=== PATIENT | female | born 1995 ===

== ENCOUNTER 2024-03-10 07:26 | Inpatient (IN) | payer OTHER ==
[2024-03-10] VITALS (8 sets, daily range): BP systolic 102; BP diastolic 71; PULSE 102–139; RESP 18–39; TEMP 102.4; O2SAT 95–100
[~2024-03-10] VITALS: Ht 160 cm; Wt 109.8 kg
[2024-03-10] MEDS: ROCURONIUM BROMIDE 10 MG/ML 5 ML VIAL IVP ONE (07:30)
[2024-03-10] MEDS ORDERED: SODIUM CHLORIDE 0.9% 100 ML ONE (07:45)
[2024-03-10] MEDS ORDERED: IOHEXOL 350 MG/ML 100 ML VIAL ONE (07:45)
[2024-03-10 08:23] LABS: HEMATOCRIT 52.6 % (36-46); HEMOGLOBIN 17.2 g/dL (12.0-16.0); MEAN CORPUSCULAR HGB CONC 32.7 G/dL (31.0-37.0); MEAN CORPUSCULAR VOLUME 92 fL (80-100); PLATELET COUNT (AUTO) 283 K/uL (150-450); RED BLOOD CELL COUNT(AUTO) 5.74 MIL/uL (4.00-5.20); RED CELL DISTRIBUTION WIDTH 13.8 % (11.5-14.5)
[2024-03-10 08:29] LABS: INR 1.4 (0.9-1.1); PROTHROMBIN TIME 14.6 SEC (9.4-11.6); WHITE BLOOD COUNT (AUTO) 37.4 K/uL (4.5-11.0)
[2024-03-10 08:30] LABS: CALCIUM, TOTAL 7.7 mg/dL (8.8-10.5); CREATININE 2.68 mg/dL (0.60-1.30); POTASSIUM 4.8 mmol/L (3.5-5.1); SALICYLATE 1.5 mg/dL (2.8-20.0)
[2024-03-10] MEDS ORDERED: NOREPINEPHRINE 8 MG/0.9 % NACL 250 ML IV ONE (08:41)
[2024-03-10 08:45] LABS: ALBUMIN 3.7 g/dL (3.4-5.0); BAND NEUTROPHILS % (MANUAL) 5 % (0-5); BILIRUBIN,TOTAL 0.3 mg/dL (0.1-1.0); LYMPHOCYTES % (MANUAL) 7 % (22-44); MONOCYTES % (MANUAL) 3 % (2-9); RBC MORPHOLOGY COMMENT NORMAL RBC MORPH; SEGMENTED NEUTROPHILS % 85 % (40-70); TOTAL CELLS COUNTED 100; TOTAL PROTEIN, SERUM 7.4 g/dL (6.4-8.2)
[2024-03-10] MEDS: LevETIRAcetam 1,000 MG in DEXTROSE 5%-WATER 100 ML IV ONE (08:47)
[2024-03-10] MEDS: PIPERACILLIN/TAZO 3.375 GM/D5W 50 ML IV ONE (08:48)
[2024-03-10 08:49] LABS: LACTIC ACID 6.7 mmol/L (0.4-2.0)
[2024-03-10 08:50] LABS: TROPONIN I-HIGH SENSITIVITY 2839 ng/L (<51)
[2024-03-10] MEDS: SODIUM CHLORIDE 0.9% 2,700 ML IV ONE (08:51)
[2024-03-10 08:56] LABS: ACETAMINOPHEN < 2 mcg/mL (10-30)
[2024-03-10 09:11] LABS: ABG BASE EXCESS -13.9 mmol/L (-2.0-3.0); ABG CARBOXYHEMOGLOBIN 0.5 % (0.5-1.5); ABG METHEMOGLOBIN 0.4 % (0.0-1.5); ABG OXYGEN CONTENT 20.1 mL/dL (15.0-23.0); ABG OXYGEN SATURATION 98.7 % (94.0-98.0); ABG OXYHEMOGLOBIN 97.8 % (94.0-98.0); ABG PCO2 48 mmHg (32.0-45.0); ABG TOTAL HEMOGLOBIN 14.4 G/dL (12.0-16.0); SOURCE, BLOOD GAS ARTERIAL; TEMPERATURE, FAHRENHEIT, BG 98.3 FAHREN (96.0-98.6)
[2024-03-10 09:11] LABS: APPEARANCE,URINE HAZY (CLEAR); BILIRUBIN,URINE NEGATIVE (NEGATIVE); COLOR,URINE DARK BROWN (YELLOW); GLUCOSE, URINE (UA) 70-100 mg/dL (NEGATIVE); KETONES,URINE NEGATIVE (NEGATIVE); LEUKOCYTE ESTERASE ,URINE TRACE (NEGATIVE); NITRATE,URINE NEGATIVE (NEGATIVE); OCCULT BLOOD,URINE LARGE (NEGATIVE); PH,URINE 6.5 (5.0-8.0); PH,URINE DRUG SCREEN 6.5 (5.0-8.0); PROTEIN,URINE 300-600,SEE CONFIRM mg/dL (NEGATIVE); UROBILINOGEN,URINE <=1.0 mg/dL (<=1.0)
[2024-03-10 09:12] LABS: ABG A-A DIFF O2 131.6 mmHg (10-20.0); ABG PH 7.124 (7.350-7.450); ALLEN TEST, BLOOD GAS Positive; O2 DEVICE,BLOOD GAS VENTILATOR (ROOM AIR); PO2, ARTERIAL BG 171.3 mmHg (83.0-108.0); SITE, BLOOD GAS RT RADIAL; VT, ABG 450 ml
[2024-03-10 09:13] LABS: PEEP,BG 5 cm H2O
[2024-03-10 09:24] LABS: SULFOSALICYLIC ACID,URINE 3+ (Negative)
[2024-03-10 09:26] LABS: ALCOHOL, URINE DRUG SCREEN NEGATIVE (NEGATIVE); AMPHET/METH SCREEN,URINE POSITIVE (NEGATIVE); BARBITURATE SCREEN, URINE NEGATIVE (NEGATIVE); BENZODIAZEPINES SCREEN,URINE NEGATIVE (NEGATIVE); CANNABINOID SCREEN,URINE POSITIVE (NEGATIVE); COCAINE SCREEN,URINE NEGATIVE (NEGATIVE); METHADONE SCREEN, URINE NEGATIVE (NEGATIVE); OPIATE SCREEN,URINE NEGATIVE (NEGATIVE); PHENCYCLIDINE SCREEN,URINE NEGATIVE (NEGATIVE)
[2024-03-10 09:33] LABS: BACTERIA,URINE Many /HPF (None Seen); FINE GRANULAR CASTS,URINE 0-2 /LPF (None Seen); HYALINE CASTS, URINE 0-2 /LPF (None Seen); SQUAMOUS EPITHELIAL CELL,UR Few /LPF (None Seen)
[2024-03-10] MEDS: VANCOMYCIN HCL 1.5 GM in DEXTROSE 5%-WATER 250 ML IV ONE (09:55)
[2024-03-10] MEDS: SODIUM BICARBONATE [ADULT] 8.4% 50 MEQ/50 ML SYRINGE IVP ONE (10:09)
[2024-03-10] MEDS: ETOMIDATE 2 MG/ML 10 ML VIAL IVP ONE (10:25)
[2024-03-10] MEDS: SODIUM BICARBONATE 150 MEQ in SODIUM CHLORIDE 0.9% 1,000 ML IV ONE (10:31)
[2024-03-10] MEDS: NOREPINEPHRINE 8 MG/0.9 % NACL 250 ML IV PRN (10:59)
[2024-03-10] MEDS: KETAMINE HCL 500 MG in DEXTROSE 5%-WATER 490 ML IV PRN (11:20)
[2024-03-10] MEDS: ALBUTEROL SULFATE 2.5 MG/0.5 ML NEB SOLUTION NEB ONE (11:43)
[2024-03-10] MEDS: IPRATROPIUM BROMIDE 0.5 MG/2.5 ML NEB SOLUTION NEB ONE (11:43)
[2024-03-10 12:29] LABS: TROPONIN I-HIGH SENSITIVITY 5336 ng/L (<51)
[2024-03-10] MEDS ORDERED: HEPARIN SODIUM,PORCINE 5,000 UNITS/ML VIAL IVP PRN (13:15)
[2024-03-10] MEDS: NALOXONE HCL 10 MG in DEXTROSE 5%-WATER 240 ML IV PRN (13:16)
[2024-03-10 13:35] LABS: BASOPHILS % (AUTO) 0.2 % (0.0-2.0); EOSINOPHILS % (AUTO) 0 % (1.0-6.0); HEMATOCRIT 48.7 % (36-46); HEMOGLOBIN 16.1 g/dL (12.0-16.0); LYMPHOCYTES # (AUTO) 1.5 K/uL (1.0-4.8); MEAN CORPUSCULAR HEMOGLOBIN 29.5 pg (26.0-34.0); MEAN CORPUSCULAR HGB CONC 33.1 G/dL (31.0-37.0); MEAN CORPUSCULAR VOLUME 89 fL (80-100); MONOCYTES # (AUTO) 1.4 K/uL (0.1-1.0); MONOCYTES % (AUTO) 4.7 % (2.0-9.0); NEUTROPHILS # (AUTO) 26.7 K/uL (1.8-7.7); PLATELET COUNT (AUTO) 219 K/uL (150-450); RED BLOOD CELL COUNT(AUTO) 5.46 MIL/uL (4.00-5.20); RED CELL DISTRIBUTION WIDTH 13.5 % (11.5-14.5); WHITE BLOOD COUNT (AUTO) 29.6 K/uL (4.5-11.0)
[2024-03-10 13:38] LABS: NEUTROPHILS % (AUTO) 90.1 % (40.0-70.0)
[2024-03-10 13:39] LABS: RBC MORPHOLOGY COMMENT NORMAL RBC MORPH
[2024-03-10 13:46] LABS: INR 1.4 (0.9-1.1); PROTHROMBIN TIME 14.9 SEC (9.4-11.6)
[2024-03-10] MEDS: HEPARIN SODIUM,PORCINE 5,000 UNITS/ML VIAL IVP ONE (13:49)
[2024-03-10] MEDS: SODIUM CHLORIDE 0.9% 1,000 ML IV ONE ×2 (13:51→14:26)
[2024-03-10] MEDS: HEPARIN SODIUM 25000 UNITS/D5W 250 ML IV PRN (13:59)
[2024-03-10 14:06] LABS: GLUCOMETER DEV NAME(LOC) ERT.6; GLUCOSE,POINT OF CARE 129 MG/DL (70-110)
[2024-03-10] MEDS ORDERED: ZOLPIDEM TARTRATE 5 MG TABLET PO PRN (14:15)
[2024-03-10] MEDS ORDERED: HYDROCODONE/ACETAMINOPHEN 5-325 MG TABLET PO PRN (14:15)
[2024-03-10] MEDS ORDERED: MORPHINE SULFATE 2 MG/ML SYRINGE IVP PRN (14:15)
[2024-03-10] MEDS ORDERED: ONDANSETRON HCL 4 MG/2 ML VIAL IVP PRN (14:15)
[2024-03-10] MEDS ORDERED: BISACODYL 10 MG RECTAL RECTAL SUPPOSITORY PR PRN (14:15)
[2024-03-10] MEDS ORDERED: MAGNESIUM HYDROXIDE SUSPENSION 30 ML UDCUP PO PRN (14:15)
[2024-03-10 14:35] LABS: TROPONIN I-HIGH SENSITIVITY 6469 ng/L (<51)
[2024-03-10] MEDS: PIPERACILLIN SODIUM/TAZOBACTAM 2.25 GM in DEXTROSE 5%-WATER 50 ML IV SCH (15:17)
[2024-03-10] MEDS: ACETAMINOPHEN 325 MG TABLET PO PRN (15:17)
[2024-03-10 15:33] LABS: ABG BASE EXCESS -4.7 mmol/L (-2.0-3.0); ABG CARBOXYHEMOGLOBIN 0.2 % (0.5-1.5); ABG HCO3 21.7 mmol/L (21.0-28.0); ABG METHEMOGLOBIN 1.1 % (0.0-1.5); ABG OXYGEN CONTENT 26.9 mL/dL (15.0-23.0); ABG OXYGEN SATURATION 98.6 % (94.0-98.0); ABG OXYHEMOGLOBIN 97.3 % (94.0-98.0); ABG PCO2 36 mmHg (32.0-45.0); ABG PH 7.375 (7.350-7.450); SOURCE, BLOOD GAS ARTERIAL; TEMPERATURE, FAHRENHEIT, BG 100.9 FAHREN (96.0-98.6)
[2024-03-10 15:34] LABS: ABG A-A DIFF O2 70.6 mmHg (10-20.0); ABG TOTAL HEMOGLOBIN 19.6 G/dL (12.0-16.0); ALLEN TEST, BLOOD GAS Positive; O2 DEVICE,BLOOD GAS VENTILATOR (ROOM AIR); PEEP,BG 5 cm H2O; SITE, BLOOD GAS RT RADIAL; VT, ABG 450 ml
[2024-03-10 15:34] LABS: CREATININE 2.35 mg/dL (0.60-1.30); POTASSIUM 4.5 mmol/L (3.5-5.1)
[2024-03-10 15:46] LABS: CALCIUM, TOTAL 5.8 mg/dL (8.8-10.5)
[2024-03-10 15:50] LABS: ALBUMIN 2.4 g/dL (3.4-5.0); BILIRUBIN,TOTAL 0.5 mg/dL (0.1-1.0); TOTAL PROTEIN, SERUM 5.3 g/dL (6.4-8.2)
[2024-03-10] MEDS ORDERED: HEPARIN SODIUM,PORCINE 5,000 UNITS/ML VIAL SQ SCH (16:00)
[2024-03-10] MEDS: ACETAMINOPHEN 500 MG/ISO-OSM 50 ML IV ONE (16:46)
[2024-03-10] MEDS: CALCIUM GLUCONATE 100 MG/ML 10 ML IVP ONE (17:01)
[2024-03-10] MEDS: DOXYCYCLINE HYCLATE 100 MG in DEXTROSE 5%-WATER 100 ML IV SCH (19:33)
[2024-03-10] MEDS: DOCUSATE SODIUM 100 MG CAPSULE PO SCH (20:35)
[2024-03-10 21:05] LABS: TROPONIN I-HIGH SENSITIVITY 7798 ng/L (<51)
[2024-03-10 22:05] LABS: COVID AG,FIA SOURCE NASAL SWAB
[2024-03-10 22:23] LABS: SARS-COV2 (COVID) ANTIGEN,FIA Negative (Negative)
[2024-03-11] VITALS (22 sets, daily range): BP systolic 83–133; BP diastolic 34–82; PULSE 85–141; RESP 20–43; TEMP 96.5–103.2; O2SAT 0–100
[2024-03-11] MEDS: PHENYLEPHRINE 200 MG/D5%-WATER 250 ML IV PRN (00:17)
[2024-03-11] MEDS: PROPOFOL 1000 MG/ISO-OSM 100 ML IV PRN (00:19)
[2024-03-11] MEDS: NOREPINEPHRINE 8 MG/0.9 % NACL 250 ML IV PRN (03:35)
[2024-03-11] MEDS ORDERED: SODIUM CHLORIDE 0.9% 250 ML IV ONE (03:43)
[2024-03-11] MEDS ORDERED: SODIUM CHLORIDE 0.9% 500 ML IV ONE ×2 (05:17→09:05)
[2024-03-11 06:13] LABS: HEMOGLOBIN 18.1 g/dL (12.0-16.0); MEAN CORPUSCULAR HEMOGLOBIN 30.2 pg (26.0-34.0); MEAN CORPUSCULAR HGB CONC 32.6 G/dL (31.0-37.0); MEAN CORPUSCULAR VOLUME 93 fL (80-100); RED BLOOD CELL COUNT(AUTO) 6.01 MIL/uL (4.00-5.20); RED CELL DISTRIBUTION WIDTH 14.3 % (11.5-14.5)
[2024-03-11 07:32] LABS: HEMATOCRIT 55.7 % (36-46); WHITE BLOOD COUNT (AUTO) 33.8 K/uL (4.5-11.0)
[2024-03-11 08:50] LABS: PLATELET COUNT (AUTO) 224 K/uL (150-450)
[2024-03-11 08:53] LABS: BAND NEUTROPHILS % (MANUAL) 9 % (0-5); LYMPHOCYTES % (MANUAL) 4 % (22-44); MONOCYTES % (MANUAL) 4 % (2-9); SEGMENTED NEUTROPHILS % 83 % (40-70); TOTAL CELLS COUNTED 100
[2024-03-11] MEDS: SODIUM CHLORIDE 0.9% 1,000 ML IV SCH (10:35)
[2024-03-11 11:36] LABS: CREATININE 5.17 mg/dL (0.60-1.30); MAGNESIUM 2.7 mg/dL (1.80-2.40); POTASSIUM 6.7 mmol/L (3.5-5.1)
[2024-03-11 11:37] LABS: CALCIUM, TOTAL 5.5 mg/dL (8.8-10.5)
[2024-03-11 11:38] LABS: PHOSPHORUS 8.6 mg/dL (2.5-4.9)
[2024-03-11] MEDS: ALBUMIN HUMAN 5%-12.5GM/250ML 250 ML IV ONE (11:51)
[2024-03-11] MEDS: PANTOPRAZOLE SODIUM 40 MG DR TABLET PO SCH (11:51)
[2024-03-11] MEDS ORDERED: HEPARIN SODIUM,PORCINE 1,000 UNITS/ML VIAL ONE (12:00)
[2024-03-11 12:18] LABS: ABG A-A DIFF O2 494.4 mmHg (10-20.0); ABG BASE EXCESS -20.1 mmol/L (-2.0-3.0); ABG CARBOXYHEMOGLOBIN 0.5 % (0.5-1.5); ABG METHEMOGLOBIN 0.2 % (0.0-1.5); ABG OXYGEN CONTENT 22.6 mL/dL (15.0-23.0); ABG OXYGEN SATURATION 98.6 % (94.0-98.0); ABG OXYHEMOGLOBIN 97.9 % (94.0-98.0); ABG PCO2 35 mmHg (32.0-45.0); ABG PH 7.073 (7.350-7.450); ABG TOTAL HEMOGLOBIN 16.2 G/dL (12.0-16.0); O2 DEVICE,BLOOD GAS VENTILATOR (ROOM AIR); PEEP,BG 5 cm H2O; PO2, ARTERIAL BG 179.4 mmHg (83.0-108.0); SITE, BLOOD GAS ARTERIAL LINE; SOURCE, BLOOD GAS ARTERIAL; TEMPERATURE, FAHRENHEIT, BG 101.6 FAHREN (96.0-98.6); VT, ABG 450 ml
[2024-03-11] MEDS: SODIUM BICARBONATE [ADULT] 8.4% 50 MEQ/50 ML SYRINGE IVP ONE (12:23)
[2024-03-11] MEDS: DEXTROSE 50%-WATER 25 GM/50 ML SYRINGE IVP ONE (12:26)
[2024-03-11] MEDS: INSULIN REGULAR, HUMAN 100 UNITS/ML IVP ONE (12:30)
[2024-03-11] MEDS: CALCIUM GLUCONATE 100 MG/ML 10 ML IVP ONE (12:32)
[2024-03-11] MEDS: *CLINICAL-MEROPENEM DOSING CLINICAL ONE (15:41)
[2024-03-11] MEDS: MEROPENEM 500 MG in SODIUM CHLORIDE 0.9% 50 ML IV SCH (17:00)
[2024-03-11] MEDS: SODIUM BICARBONATE 150 MEQ in SODIUM CHLORIDE 0.45% 1,000 ML IV SCH (17:58)
[2024-03-11] MEDS ORDERED: PIPERACILLIN SODIUM/TAZOBACTAM 2.25 GM in DEXTROSE 5%-WATER 50 ML IV SCH (18:00)
[2024-03-11] MEDS: VASOPRESSIN 40 UNITS in DEXTROSE 5%-WATER 98 ML IV PRN (18:02)
[2024-03-11 18:42] LABS: CREATININE 3.8 mg/dL (0.60-1.30); POTASSIUM 4.4 mmol/L (3.5-5.1)
[2024-03-11 18:46] LABS: MAGNESIUM 1.8 mg/dL (1.80-2.40)
[2024-03-11 19:01] LABS: PHOSPHORUS 9.9 mg/dL (2.5-4.9)
[2024-03-12] VITALS (17 sets, daily range): BP systolic 70–118; BP diastolic 40–62; PULSE 103–126; RESP 20; TEMP 97.1–100.2; O2SAT 99–100
[2024-03-12 06:30] LABS: CREATININE 4.56 mg/dL (0.60-1.30); POTASSIUM 5.1 mmol/L (3.5-5.1)
[2024-03-12 07:53] LABS: BASOPHILS % (AUTO) 0.2 % (0.0-2.0); EOSINOPHILS % (AUTO) 0.7 % (1.0-6.0); HEMATOCRIT 41.3 % (36-46); LYMPHOCYTES # (AUTO) 1.4 K/uL (1.0-4.8); MEAN CORPUSCULAR HGB CONC 32.2 G/dL (31.0-37.0); MEAN CORPUSCULAR VOLUME 93 fL (80-100); MONOCYTES # (AUTO) 0.6 K/uL (0.1-1.0); MONOCYTES % (AUTO) 2.3 % (2.0-9.0); NEUTROPHILS # (AUTO) 24.9 K/uL (1.8-7.7); RED BLOOD CELL COUNT(AUTO) 4.43 MIL/uL (4.00-5.20); RED CELL DISTRIBUTION WIDTH 14.1 % (11.5-14.5); WHITE BLOOD COUNT (AUTO) 27.1 K/uL (4.5-11.0)
[2024-03-12 07:54] LABS: NEUTROPHILS % (AUTO) 91.8 % (40.0-70.0); PLATELET COUNT (AUTO) 64 K/uL (150-450)
[2024-03-12 07:55] LABS: HEMOGLOBIN 13.3 g/dL (12.0-16.0)
[2024-03-12 08:08] LABS: CALCIUM, TOTAL 5.7 mg/dL (8.8-10.5); PHOSPHORUS 10.1 mg/dL (2.5-4.9)
[2024-03-12 08:24] LABS: APPEARANCE,URINE TURBID (CLEAR); BILIRUBIN,URINE NEGATIVE (NEGATIVE); GLUCOSE, URINE (UA) 150-200 mg/dL (NEGATIVE); LEUKOCYTE ESTERASE ,URINE SMALL (NEGATIVE); NITRATE,URINE NEGATIVE (NEGATIVE); OCCULT BLOOD,URINE LARGE (NEGATIVE); PH,URINE 5.5 (5.0-8.0); PROTEIN,URINE 300-600,SEE CONFIRM mg/dL (NEGATIVE); SPECIFIC GRAVITIY, URINE 1.048 (1.003-1.030); UROBILINOGEN,URINE <=1.0 mg/dL (<=1.0)
[2024-03-12 08:26] LABS: COLOR,URINE LIGHT BROWN (YELLOW)
[2024-03-12 08:30] LABS: SODIUM,URINE RANDOM 23 mmol/l (20-110)
[2024-03-12 08:33] LABS: SULFOSALICYLIC ACID,URINE 3+ (Negative)
[2024-03-12 08:34] LABS: WBC,URINE 26-50 /HPF (0-5)
[2024-03-12 08:35] LABS: BACTERIA,URINE Many /HPF (None Seen); CREATININE,URINE RANDOM 157.1 mg/dL (30.0-125.0); RBC,URINE 51-100 /HPF (0-2); UREA NITROGEN,URINE RANDOM 37 mg/dL (350-1000)
[2024-03-12 08:36] LABS: RENAL EPITHELIAL CELLS,URINE Moderate /LPF (None Seen); SQUAMOUS EPITHELIAL CELL,UR Moderate /LPF (None Seen)
[2024-03-12] MEDS: HEPARIN SODIUM,PORCINE 5,000 UNITS/ML VIAL IVP PRN (09:45)
[2024-03-12] MEDS: CALCIUM GLUCONATE 100 MG/ML 10 ML IVP ONE (10:06)
[2024-03-12] MEDS: PANTOPRAZOLE SODIUM 40 MG/VIAL IVP SCH (10:56)
[2024-03-12] MEDS ORDERED: HEPARIN SODIUM,PORCINE 1,000 UNITS/ML VIAL ONE (12:00)
[2024-03-12 12:12] LABS: OCCULT BLOOD,GASTRIC FLUID POSITIVE (NEGATIVE)
[2024-03-12] MEDS ORDERED: VANCOMYCIN HCL 1 GM in DEXTROSE 5%-WATER 250 ML IV PRN (13:15)
[2024-03-12] MEDS: VANCOMYCIN HCL 750 MG in DEXTROSE 5%-WATER 250 ML IV ONE (16:15)
[2024-03-12 21:17] LABS: CREATININE 5.04 mg/dL (0.60-1.30)
[2024-03-12 21:21] LABS: MAGNESIUM 1.8 mg/dL (1.80-2.40); PHOSPHORUS 7.6 mg/dL (2.5-4.9)
[2024-03-12 21:29] LABS: CALCIUM, TOTAL 5.1 mg/dL (8.8-10.5)
[2024-03-13] VITALS (13 sets, daily range): BP systolic 90–124; BP diastolic 50–70; PULSE 120–135; RESP 20–22; TEMP 100.3–101.6; O2SAT 70–100
[2024-03-13 00:01] LABS: GLUCOMETER DEV NAME(LOC) ICU.S6; GLUCOSE,POINT OF CARE 95 MG/DL (70-110)
[2024-03-13] MEDS: CALCIUM GLUCONATE 1,000 MG in DEXTROSE 5%-WATER 50 ML IV ONE (00:20)
[2024-03-13 06:06] LABS: GLUCOMETER DEV NAME(LOC) ICU.S6; GLUCOSE,POINT OF CARE 73 MG/DL (70-110)
[2024-03-13 06:50] LABS: ALBUMIN 1.2 g/dL (3.4-5.0); BILIRUBIN,TOTAL 1.4 mg/dL (0.1-1.0); CREATININE 5.45 mg/dL (0.60-1.30); MAGNESIUM 1.9 mg/dL (1.80-2.40); POTASSIUM 4.3 mmol/L (3.5-5.1); TOTAL PROTEIN, SERUM 3.6 g/dL (6.4-8.2)
[2024-03-13 06:55] LABS: CALCIUM, TOTAL 5.4 mg/dL (8.8-10.5)
[2024-03-13] MEDS: CALCIUM GLUCONATE 100 MG/ML 10 ML IVP ONE (09:01)
[2024-03-13] MEDS ORDERED: AMIODARONE HCL 150 MG in DEXTROSE 5%-WATER 97 ML IV ONE (09:15)
[2024-03-13] MEDS ORDERED: DILTIAZEM HCL 5 MG/ML 5 ML VIAL IVP ONE (09:15)
[2024-03-13] MEDS ORDERED: AMIODARONE HCL 360 MG in DEXTROSE 5%-WATER 242.8 ML IV ONE (09:30)
[2024-03-13 09:34] LABS: BASOPHILS % (AUTO) 0.6 % (0.0-2.0); EOSINOPHILS % (AUTO) 1.4 % (1.0-6.0); HEMATOCRIT 35.8 % (36-46); HEMOGLOBIN 11.7 g/dL (12.0-16.0); LYMPHOCYTES # (AUTO) 1.2 K/uL (1.0-4.8); LYMPHOCYTES % (AUTO) 7.2 % (22.0-44.0); MEAN CORPUSCULAR HEMOGLOBIN 29.8 pg (26.0-34.0); MEAN CORPUSCULAR HGB CONC 32.6 G/dL (31.0-37.0); MEAN CORPUSCULAR VOLUME 92 fL (80-100); MONOCYTES # (AUTO) 0.4 K/uL (0.1-1.0); MONOCYTES % (AUTO) 2.6 % (2.0-9.0); NEUTROPHILS # (AUTO) 14.7 K/uL (1.8-7.7); PLATELET COUNT (AUTO) 56 K/uL (150-450); RED BLOOD CELL COUNT(AUTO) 3.91 MIL/uL (4.00-5.20); RED CELL DISTRIBUTION WIDTH 13.6 % (11.5-14.5); WHITE BLOOD COUNT (AUTO) 16.7 K/uL (4.5-11.0)
[2024-03-13 09:35] LABS: NEUTROPHILS % (AUTO) 88.2 % (40.0-70.0)
[2024-03-13] MEDS ORDERED: AMIODARONE HCL 540 MG in DEXTROSE 5%-WATER 239.2 ML IV ONE (15:30)
[2024-03-13 20:54] LABS: ABG BASE EXCESS 2.4 mmol/L (-2.0-3.0); ABG CARBOXYHEMOGLOBIN 0.3 % (0.5-1.5); ABG HCO3 26.6 mmol/L (21.0-28.0); ABG METHEMOGLOBIN 0.2 % (0.0-1.5); ABG OXYGEN CONTENT 17.5 mL/dL (15.0-23.0); ABG OXYGEN SATURATION 99.5 % (94.0-98.0); ABG PCO2 39 mmHg (32.0-45.0); ABG TOTAL HEMOGLOBIN 12.1 G/dL (12.0-16.0); SOURCE, BLOOD GAS ARTERIAL; TEMPERATURE, FAHRENHEIT, BG 98.6 FAHREN (96.0-98.6)
[2024-03-13 20:55] LABS: PO2, ARTERIAL BG 258.2 mmHg (83.0-108.0); SITE, BLOOD GAS ART LINE
[2024-03-13 20:56] LABS: O2 DEVICE,BLOOD GAS VENT (ROOM AIR); PEEP,BG 5 cm H2O; VT, ABG 450 ml
[2024-03-14] VITALS (26 sets, daily range): BP systolic 81–129; BP diastolic 45–73; PULSE 108–132; RESP 20–22; TEMP 96–101.3; O2SAT 70–100
[2024-03-14 06:10] LABS: BASOPHILS % (AUTO) 0.3 % (0.0-2.0); EOSINOPHILS % (AUTO) 1.8 % (1.0-6.0); HEMATOCRIT 31.5 % (36-46); HEMOGLOBIN 10.4 g/dL (12.0-16.0); LYMPHOCYTES # (AUTO) 1.3 K/uL (1.0-4.8); MEAN CORPUSCULAR VOLUME 91 fL (80-100); MONOCYTES # (AUTO) 1.2 K/uL (0.1-1.0); MONOCYTES % (AUTO) 5.2 % (2.0-9.0); NEUTROPHILS # (AUTO) 19.3 K/uL (1.8-7.7); PLATELET COUNT (AUTO) 78 K/uL (150-450); RED BLOOD CELL COUNT(AUTO) 3.47 MIL/uL (4.00-5.20); RED CELL DISTRIBUTION WIDTH 14.2 % (11.5-14.5); WHITE BLOOD COUNT (AUTO) 22.2 K/uL (4.5-11.0)
[2024-03-14 06:25] LABS: NEUTROPHILS % (AUTO) 86.7 % (40.0-70.0)
[2024-03-14 06:33] LABS: ALBUMIN 1.1 g/dL (3.4-5.0); BILIRUBIN,TOTAL 1.5 mg/dL (0.1-1.0); CREATININE 6.76 mg/dL (0.60-1.30); POTASSIUM 5.3 mmol/L (3.5-5.1); TOTAL PROTEIN, SERUM 3.8 g/dL (6.4-8.2); VANCOMYCIN,RANDOM 16.5 mcg/mL (25.0-50.0)
[2024-03-14 07:10] LABS: CALCIUM, TOTAL 5.6 mg/dL (8.8-10.5)
[2024-03-14] MEDS ORDERED: AMIODARONE HCL 750 MG in DEXTROSE 5%-WATER 485 ML IV SCH (09:30)
[2024-03-14] MEDS: CALCIUM GLUCONATE 100 MG/ML 10 ML IVP ONE (11:06)
[2024-03-14] MEDS ORDERED: INSULIN REGULAR, HUMAN 100 UNITS in SODIUM CHLORIDE 0.9% 99 ML IV PRN (13:30)
[2024-03-14] MEDS ORDERED: PIPERACILLIN SODIUM/TAZOBACTAM 4.5 GM in DEXTROSE 5%-WATER 100 ML IV ONE (14:00)
[2024-03-14] MEDS ORDERED: PIPERACILLIN/TAZO 3.375 GM/D5W 50 ML IV SCH (14:00)
[2024-03-14 14:47] LABS: INR 1.8 (0.9-1.1); PROTHROMBIN TIME 17.9 SEC (9.4-11.6)
[2024-03-14] MEDS: LEVOTHYROXINE SODIUM IV PRN (15:25)
[2024-03-14] MEDS: SODIUM CHLORIDE 0.9% IV PRN (15:25)
[2024-03-14] MEDS: ALBUMIN HUMAN 5%-12.5GM/250ML 500 ML IV ONE (15:25)
[2024-03-14 15:37] LABS: TROPONIN I-HIGH SENSITIVITY 255 ng/L (<51)
[2024-03-14 15:44] LABS: BASOPHILS % (AUTO) 0.4 % (0.0-2.0); EOSINOPHILS % (AUTO) 1.8 % (1.0-6.0); HEMATOCRIT 28.8 % (36-46); HEMOGLOBIN 9.4 g/dL (12.0-16.0); LYMPHOCYTES # (AUTO) 1.6 K/uL (1.0-4.8); MEAN CORPUSCULAR HEMOGLOBIN 29.7 pg (26.0-34.0); MEAN CORPUSCULAR HGB CONC 32.7 G/dL (31.0-37.0); MEAN CORPUSCULAR VOLUME 91 fL (80-100); MONOCYTES # (AUTO) 1.6 K/uL (0.1-1.0); MONOCYTES % (AUTO) 6.2 % (2.0-9.0); NEUTROPHILS # (AUTO) 22.6 K/uL (1.8-7.7); PLATELET COUNT (AUTO) 73 K/uL (150-450); RED BLOOD CELL COUNT(AUTO) 3.18 MIL/uL (4.00-5.20); RED CELL DISTRIBUTION WIDTH 14.3 % (11.5-14.5); WHITE BLOOD COUNT (AUTO) 26.4 K/uL (4.5-11.0)
[2024-03-14 15:45] LABS: APPEARANCE,URINE HAZY (CLEAR); BILIRUBIN,URINE NEGATIVE (NEGATIVE); GLUCOSE, URINE (UA) 150-200 mg/dL (NEGATIVE); KETONES,URINE NEGATIVE (NEGATIVE); LEUKOCYTE ESTERASE ,URINE SMALL (NEGATIVE); NITRATE,URINE NEGATIVE (NEGATIVE); OCCULT BLOOD,URINE LARGE (NEGATIVE); PROTEIN,URINE 300-600,SEE CONFIRM mg/dL (NEGATIVE); SPECIFIC GRAVITIY, URINE 1.036 (1.003-1.030)
[2024-03-14 15:47] LABS: COLOR,URINE LIGHT BROWN (YELLOW)
[2024-03-14 15:58] LABS: NEUTROPHILS % (AUTO) 85.6 % (40.0-70.0)
[2024-03-14 16:05] LABS: GLUCOMETER DEV NAME(LOC) ICUN.5; GLUCOSE,POINT OF CARE 77 MG/DL (70-110)
[2024-03-14 16:09] LABS: BACTERIA,URINE Few /HPF (None Seen); SQUAMOUS EPITHELIAL CELL,UR Few /LPF (None Seen); SULFOSALICYLIC ACID,URINE 3+ (Negative)
[2024-03-14 16:24] LABS: BILIRUBIN,DIRECT 1.1 mg/dL (0.00-0.20); BILIRUBIN,TOTAL 1.6 mg/dL (0.1-1.0)
[2024-03-14 16:45] LABS: CREATININE 7.12 mg/dL (0.60-1.30); POTASSIUM 4.9 mmol/L (3.5-5.1)
[2024-03-14 16:55] LABS: CALCIUM, TOTAL 5.9 mg/dL (8.8-10.5)
[2024-03-14 16:56] LABS: BILIRUBIN,TOTAL 1.6 mg/dL (0.1-1.0); MAGNESIUM 1.9 mg/dL (1.80-2.40); TOTAL PROTEIN, SERUM 3.8 g/dL (6.4-8.2)
[2024-03-14 16:56] LABS: INR 1.9 (0.9-1.1); PROTHROMBIN TIME 18.8 SEC (9.4-11.6)
[2024-03-14] MEDS: VANCOMYCIN HCL 750 MG in DEXTROSE 5%-WATER 250 ML IV ONE (17:01)
[2024-03-14] MEDS: MINERAL OIL/PETROLATUM,WHITE PF 3.5 GM OPHTHALMIC OINTMENT OU SCH (17:03)
[2024-03-14 17:20] LABS: TROPONIN I-HIGH SENSITIVITY 174 ng/L (<51)
[2024-03-14 17:41] LABS: GLUCOMETER DEV NAME(LOC) ICU.S6; GLUCOSE,POINT OF CARE 70 MG/DL (70-110)
[2024-03-14 17:45] LABS: BILIRUBIN,DIRECT 1.2 mg/dL (0.00-0.20); BILIRUBIN,TOTAL 1.8 mg/dL (0.1-1.0)
[2024-03-14] MEDS ORDERED: SODIUM CHLORIDE 0.9% 1,000 ML ONE ×2 (17:53)
[2024-03-14 18:25] LABS: GLUCOMETER DEV NAME(LOC) ICUN.5; GLUCOSE,POINT OF CARE 96 MG/DL (70-110)
[2024-03-14 19:20] LABS: ABG BASE EXCESS 0.7 mmol/L (-2.0-3.0); ABG CARBOXYHEMOGLOBIN 0.3 % (0.5-1.5); ABG METHEMOGLOBIN 0.3 % (0.0-1.5); ABG OXYGEN CONTENT 13.4 mL/dL (15.0-23.0); ABG OXYGEN SATURATION 99.1 % (94.0-98.0); ABG OXYHEMOGLOBIN 98.5 % (94.0-98.0); ABG PCO2 45 mmHg (32.0-45.0); ABG PH 7.378 (7.350-7.450); ABG TOTAL HEMOGLOBIN 9.4 G/dL (12.0-16.0); SOURCE, BLOOD GAS ARTERIAL; TEMPERATURE, FAHRENHEIT, BG 98.6 FAHREN (96.0-98.6)
[2024-03-14 19:24] LABS: O2 DEVICE,BLOOD GAS VENT (ROOM AIR); PEEP,BG 5 cm H2O; PO2, ARTERIAL BG 176.2 mmHg (83.0-108.0); SITE, BLOOD GAS ART LINE; VT, ABG 450 ml
[2024-03-14 19:24] LABS: BASOPHILS % (AUTO) 0.4 % (0.0-2.0); HEMATOCRIT 25.1 % (36-46); HEMOGLOBIN 8.1 g/dL (12.0-16.0); LYMPHOCYTES # (AUTO) 1.2 K/uL (1.0-4.8); LYMPHOCYTES % (AUTO) 5.7 % (22.0-44.0); MEAN CORPUSCULAR HEMOGLOBIN 29.5 pg (26.0-34.0); MEAN CORPUSCULAR HGB CONC 32.2 G/dL (31.0-37.0); MEAN CORPUSCULAR VOLUME 92 fL (80-100); MONOCYTES # (AUTO) 1.1 K/uL (0.1-1.0); MONOCYTES % (AUTO) 5.1 % (2.0-9.0); NEUTROPHILS # (AUTO) 18.5 K/uL (1.8-7.7); PLATELET COUNT (AUTO) 58 K/uL (150-450); RED BLOOD CELL COUNT(AUTO) 2.74 MIL/uL (4.00-5.20); RED CELL DISTRIBUTION WIDTH 14.4 % (11.5-14.5); WHITE BLOOD COUNT (AUTO) 21.3 K/uL (4.5-11.0)
[2024-03-14 19:25] LABS: NEUTROPHILS % (AUTO) 86.8 % (40.0-70.0)
[2024-03-14] MEDS: NOREPINEPHRINE 8 MG/0.9 % NACL 250 ML IV PRN (19:47)
[2024-03-14 19:57] LABS: CREATININE 6.64 mg/dL (0.60-1.30); POTASSIUM 4.6 mmol/L (3.5-5.1)
[2024-03-14 20:08] LABS: ALBUMIN 1.1 g/dL (3.4-5.0); BILIRUBIN,TOTAL 1.8 mg/dL (0.1-1.0); MAGNESIUM 1.7 mg/dL (1.80-2.40); TOTAL PROTEIN, SERUM 3.6 g/dL (6.4-8.2)
[2024-03-14 20:11] LABS: CALCIUM, TOTAL 5.8 mg/dL (8.8-10.5)
[2024-03-14 20:45] LABS: INR 1.9 (0.9-1.1); PROTHROMBIN TIME 18.9 SEC (9.4-11.6)
[2024-03-14 20:45] LABS: GLUCOMETER DEV NAME(LOC) ICUN.5; GLUCOSE,POINT OF CARE 82 MG/DL (70-110)
[2024-03-14 20:56] LABS: BILIRUBIN,DIRECT 1.3 mg/dL (0.00-0.20); BILIRUBIN,TOTAL 1.8 mg/dL (0.1-1.0)
[2024-03-14 21:09] LABS: TROPONIN I-HIGH SENSITIVITY 204 ng/L (<51)
[2024-03-14] MEDS: MEROPENEM 1 GM in SODIUM CHLORIDE 0.9% 100 ML IV SCH (21:16)
[2024-03-14] MEDS: CALCIUM GLUCONATE 100 MG/ML 10 ML IVP SCH (23:16)
[2024-03-14 23:17] LABS: BASOPHILS % (AUTO) 0.2 % (0.0-2.0); EOSINOPHILS % (AUTO) 2.1 % (1.0-6.0); HEMATOCRIT 26.7 % (36-46); HEMOGLOBIN 8.6 g/dL (12.0-16.0); LYMPHOCYTES # (AUTO) 1.3 K/uL (1.0-4.8); LYMPHOCYTES % (AUTO) 5.5 % (22.0-44.0); MEAN CORPUSCULAR HEMOGLOBIN 29.3 pg (26.0-34.0); MEAN CORPUSCULAR VOLUME 91 fL (80-100); MONOCYTES # (AUTO) 1.2 K/uL (0.1-1.0); MONOCYTES % (AUTO) 5.4 % (2.0-9.0); NEUTROPHILS # (AUTO) 19.9 K/uL (1.8-7.7); PLATELET COUNT (AUTO) 49 K/uL (150-450); RED BLOOD CELL COUNT(AUTO) 2.93 MIL/uL (4.00-5.20); RED CELL DISTRIBUTION WIDTH 14.3 % (11.5-14.5); WHITE BLOOD COUNT (AUTO) 22.9 K/uL (4.5-11.0)
[2024-03-14 23:38] LABS: NEUTROPHILS % (AUTO) 86.8 % (40.0-70.0)
[2024-03-14 23:39] LABS: CALCIUM, TOTAL 6.7 mg/dL (8.8-10.5); CREATININE 6.44 mg/dL (0.60-1.30); POTASSIUM 4.4 mmol/L (3.5-5.1)
[2024-03-14 23:53] LABS: ALBUMIN 1.2 g/dL (3.4-5.0); BILIRUBIN,TOTAL 1.9 mg/dL (0.1-1.0); MAGNESIUM 1.7 mg/dL (1.80-2.40); TOTAL PROTEIN, SERUM 3.8 g/dL (6.4-8.2)
[2024-03-15] VITALS (32 sets, daily range): BP systolic 91–133; BP diastolic 41–81; PULSE 101–114; RESP 20–22; TEMP 93.9–98.2; O2SAT 89–100
[2024-03-15 00:26] LABS: GLUCOMETER DEV NAME(LOC) ICU.S6; GLUCOSE,POINT OF CARE 82 MG/DL (70-110)
[2024-03-15 00:26] LABS: GLUCOMETER DEV NAME(LOC) ICU.S6; GLUCOSE,POINT OF CARE 91 MG/DL (70-110)
[2024-03-15 00:26] LABS: GLUCOMETER DEV NAME(LOC) ICU.S6; GLUCOSE,POINT OF CARE 87 MG/DL (70-110)
[2024-03-15 00:35] LABS: ABG CARBOXYHEMOGLOBIN 0.3 % (0.5-1.5); ABG HCO3 26.1 mmol/L (21.0-28.0); ABG METHEMOGLOBIN 0.3 % (0.0-1.5); ABG OXYGEN CONTENT 13.7 mL/dL (15.0-23.0); ABG OXYGEN SATURATION 99.4 % (94.0-98.0); ABG OXYHEMOGLOBIN 98.8 % (94.0-98.0); ABG PCO2 43 mmHg (32.0-45.0); ABG PH 7.407 (7.350-7.450); ABG TOTAL HEMOGLOBIN 9.4 G/dL (12.0-16.0); SOURCE, BLOOD GAS ARTERIAL; TEMPERATURE, FAHRENHEIT, BG 98.6 FAHREN (96.0-98.6)
[2024-03-15 00:37] LABS: O2 DEVICE,BLOOD GAS VENT (ROOM AIR); PEEP,BG 5 cm H2O; SITE, BLOOD GAS ART LINE; VT, ABG 450 ml
[2024-03-15 01:06] LABS: INR 1.9 (0.9-1.1); PROTHROMBIN TIME 18.8 SEC (9.4-11.6)
[2024-03-15 01:16] LABS: BILIRUBIN,DIRECT 1.4 mg/dL (0.00-0.20)
[2024-03-15 01:31] LABS: GLUCOMETER DEV NAME(LOC) ICUN.5; GLUCOSE,POINT OF CARE 90 MG/DL (70-110)
[2024-03-15 01:31] LABS: GLUCOMETER DEV NAME(LOC) ICUN.5; GLUCOSE,POINT OF CARE 85 MG/DL (70-110)
[2024-03-15 01:31] LABS: GLUCOMETER DEV NAME(LOC) ICUN.5; GLUCOSE,POINT OF CARE 81 MG/DL (70-110)
[2024-03-15 01:48] LABS: TROPONIN I-HIGH SENSITIVITY 173 ng/L (<51)
[2024-03-15] MEDS: DEXTROSE 50%-WATER 25 GM/50 ML SYRINGE IVP PRN (02:30)
[2024-03-15] MEDS: POTASSIUM CHLORIDE 20 MEQ, SODIUM BICARBONATE 25 MEQ in NXSTAGE RFP-402 K0/CA3 5,000 ML IRRIG PRN (02:54)
[2024-03-15] MEDS ORDERED: SODIUM CHLORIDE 0.9% 250 ML IV ONE (03:16)
[2024-03-15 03:18] LABS: BASOPHILS % (AUTO) 0.6 % (0.0-2.0); EOSINOPHILS % (AUTO) 2.5 % (1.0-6.0); HEMATOCRIT 26.2 % (36-46); HEMOGLOBIN 8.5 g/dL (12.0-16.0); LYMPHOCYTES # (AUTO) 1.3 K/uL (1.0-4.8); LYMPHOCYTES % (AUTO) 5.7 % (22.0-44.0); MEAN CORPUSCULAR HEMOGLOBIN 29.9 pg (26.0-34.0); MEAN CORPUSCULAR HGB CONC 32.5 G/dL (31.0-37.0); MEAN CORPUSCULAR VOLUME 92 fL (80-100); MONOCYTES # (AUTO) 1.4 K/uL (0.1-1.0); MONOCYTES % (AUTO) 6.2 % (2.0-9.0); NEUTROPHILS # (AUTO) 19.7 K/uL (1.8-7.7); PLATELET COUNT (AUTO) 46 K/uL (150-450); RED BLOOD CELL COUNT(AUTO) 2.85 MIL/uL (4.00-5.20); RED CELL DISTRIBUTION WIDTH 14.3 % (11.5-14.5); WHITE BLOOD COUNT (AUTO) 23.1 K/uL (4.5-11.0)
[2024-03-15 03:27] LABS: ABG CARBOXYHEMOGLOBIN 0.1 % (0.5-1.5); ABG HCO3 24.5 mmol/L (21.0-28.0); ABG METHEMOGLOBIN 0.3 % (0.0-1.5); ABG OXYGEN CONTENT 12.4 mL/dL (15.0-23.0); ABG OXYGEN SATURATION 99.6 % (94.0-98.0); ABG OXYHEMOGLOBIN 99.2 % (94.0-98.0); ABG PCO2 46 mmHg (32.0-45.0); ABG PH 7.362 (7.350-7.450); ABG TOTAL HEMOGLOBIN 8.4 G/dL (12.0-16.0); SOURCE, BLOOD GAS ARTERIAL; TEMPERATURE, FAHRENHEIT, BG 98.6 FAHREN (96.0-98.6)
[2024-03-15 03:29] LABS: O2 DEVICE,BLOOD GAS VENT (ROOM AIR); PEEP,BG 5 cm H2O; SITE, BLOOD GAS ART LINE; VT, ABG 450 ml
[2024-03-15 03:29] LABS: CALCIUM, TOTAL 7.1 mg/dL (8.8-10.5); CREATININE 6.03 mg/dL (0.60-1.30); POTASSIUM 4.1 mmol/L (3.5-5.1)
[2024-03-15 03:47] LABS: ALBUMIN 1.1 g/dL (3.4-5.0); BILIRUBIN,TOTAL 1.9 mg/dL (0.1-1.0); MAGNESIUM 1.7 mg/dL (1.80-2.40); TOTAL PROTEIN, SERUM 3.8 g/dL (6.4-8.2)
[2024-03-15 04:29] LABS: LACTIC ACID 6.2 mmol/L (0.4-2.0)
[2024-03-15 04:41] LABS: GLUCOMETER DEV NAME(LOC) ICU.S6; GLUCOSE,POINT OF CARE 84 MG/DL (70-110)
[2024-03-15 04:41] LABS: GLUCOMETER DEV NAME(LOC) ICU.S6; GLUCOSE,POINT OF CARE 70 MG/DL (70-110)
[2024-03-15 04:41] LABS: GLUCOMETER DEV NAME(LOC) ICU.S6; GLUCOSE,POINT OF CARE 115 MG/DL (70-110)
[2024-03-15 04:54] LABS: INR 1.9 (0.9-1.1); PROTHROMBIN TIME 19.2 SEC (9.4-11.6)
[2024-03-15 05:06] LABS: BILIRUBIN,DIRECT 1.5 mg/dL (0.00-0.20); BILIRUBIN,TOTAL 2.1 mg/dL (0.1-1.0)
[2024-03-15 05:10] LABS: TROPONIN I-HIGH SENSITIVITY 134 ng/L (<51)
[2024-03-15] MEDS: SODIUM BICARBONATE [ADULT] 8.4% 50 MEQ/50 ML SYRINGE IVP ONE (05:57)
[2024-03-15] MEDS: ALBUMIN HUMAN 25%-25GM/100ML 100 ML IV ONE ×2 (07:42→12:13)
[2024-03-15] MEDS: NOREPINEPHRINE BITARTRATE IV PRN (07:43)
[2024-03-15] MEDS: SODIUM CHLORIDE 0.9% IV PRN (07:43)
[2024-03-15 08:06] LABS: ABG BASE EXCESS 1.7 mmol/L (-2.0-3.0); ABG CARBOXYHEMOGLOBIN 0.6 % (0.5-1.5); ABG HCO3 25.8 mmol/L (21.0-28.0); ABG METHEMOGLOBIN 0.1 % (0.0-1.5); ABG OXYGEN CONTENT 18.2 mL/dL (15.0-23.0); ABG OXYGEN SATURATION 99.7 % (94.0-98.0); ABG PCO2 40 mmHg (32.0-45.0); ABG PH 7.435 (7.350-7.450); ABG TOTAL HEMOGLOBIN 12.5 G/dL (12.0-16.0); SOURCE, BLOOD GAS ARTERIAL; TEMPERATURE, FAHRENHEIT, BG 94.4 FAHREN (96.0-98.6)
[2024-03-15 08:07] LABS: PO2, ARTERIAL BG 301.4 mmHg (83.0-108.0)
[2024-03-15 08:08] LABS: O2 DEVICE,BLOOD GAS VENTILATOR (ROOM AIR); SITE, BLOOD GAS ARTERIAL LINE; VT, ABG 450 ml
[2024-03-15 08:09] LABS: PEEP,BG 5 cm H2O
[2024-03-15 08:10] LABS: HEMATOCRIT 26.9 % (36-46); HEMOGLOBIN 8.8 g/dL (12.0-16.0); MEAN CORPUSCULAR HGB CONC 32.8 G/dL (31.0-37.0); MEAN CORPUSCULAR VOLUME 92 fL (80-100); RED BLOOD CELL COUNT(AUTO) 2.94 MIL/uL (4.00-5.20); RED CELL DISTRIBUTION WIDTH 14.4 % (11.5-14.5); WHITE BLOOD COUNT (AUTO) 22.3 K/uL (4.5-11.0)
[2024-03-15 08:14] LABS: CALCIUM, TOTAL 7.1 mg/dL (8.8-10.5); CREATININE 5.47 mg/dL (0.60-1.30); POTASSIUM 4.3 mmol/L (3.5-5.1)
[2024-03-15 08:25] LABS: ALBUMIN 1.2 g/dL (3.4-5.0); BILIRUBIN,TOTAL 2.1 mg/dL (0.1-1.0); MAGNESIUM 1.8 mg/dL (1.80-2.40)
[2024-03-15 08:55] LABS: BILIRUBIN,DIRECT 1.6 mg/dL (0.00-0.20); BILIRUBIN,TOTAL 2.4 mg/dL (0.1-1.0)
[2024-03-15 08:55] LABS: PLATELET COUNT (AUTO) 49 K/uL (150-450)
[2024-03-15] MEDS ORDERED: SODIUM CHLORIDE 0.9% 500 ML IV ONE (08:58)
[2024-03-15 08:59] LABS: BAND NEUTROPHILS % (MANUAL) 9 % (0-5); EOSINOPHILS % (MANUAL) 1 % (1-6); LYMPHOCYTES % (MANUAL) 6 % (22-44); MONOCYTES % (MANUAL) 5 % (2-9); SEGMENTED NEUTROPHILS % 79 % (40-70); TOTAL CELLS COUNTED 100
[2024-03-15 09:01] LABS: PROTHROMBIN TIME 19.9 SEC (9.4-11.6)
[2024-03-15 09:10] LABS: TROPONIN I-HIGH SENSITIVITY 132 ng/L (<51)
[2024-03-15] MEDS: MethylPREDNISolone SOD SUCC 500 MG in SODIUM CHLORIDE 0.9% 50 ML IV SCH (09:11)
[2024-03-15 10:21] LABS: GLUCOMETER DEV NAME(LOC) ICU.S6; GLUCOSE,POINT OF CARE 94 MG/DL (70-110)
[2024-03-15 10:21] LABS: GLUCOMETER DEV NAME(LOC) ICU.S6; GLUCOSE,POINT OF CARE 90 MG/DL (70-110)
[2024-03-15 10:21] LABS: GLUCOMETER DEV NAME(LOC) ICU.S6; GLUCOSE,POINT OF CARE 82 MG/DL (70-110)
[2024-03-15 10:21] LABS: GLUCOMETER DEV NAME(LOC) ICU.S6; GLUCOSE,POINT OF CARE 91 MG/DL (70-110)
[2024-03-15 10:21] LABS: GLUCOMETER DEV NAME(LOC) ICU.S6; GLUCOSE,POINT OF CARE 80 MG/DL (70-110)
[2024-03-15 10:21] LABS: GLUCOMETER DEV NAME(LOC) ICU.S6; GLUCOSE,POINT OF CARE 84 MG/DL (70-110)
[2024-03-15] MEDS: ROCURONIUM BROMIDE 10 MG/ML 5 ML VIAL IVP ONE ×2 (11:19→14:45)
[2024-03-15 11:21] LABS: HEMATOCRIT 26.1 % (36-46); HEMOGLOBIN 8.3 g/dL (12.0-16.0); MEAN CORPUSCULAR HEMOGLOBIN 29.2 pg (26.0-34.0); MEAN CORPUSCULAR HGB CONC 31.8 G/dL (31.0-37.0); MEAN CORPUSCULAR VOLUME 92 fL (80-100); PLATELET COUNT (AUTO) 46 K/uL (150-450); RED BLOOD CELL COUNT(AUTO) 2.84 MIL/uL (4.00-5.20); RED CELL DISTRIBUTION WIDTH 14.6 % (11.5-14.5)
[2024-03-15 11:33] LABS: CALCIUM, TOTAL 7.6 mg/dL (8.8-10.5); CREATININE 5.2 mg/dL (0.60-1.30); POTASSIUM 4.3 mmol/L (3.5-5.1)
[2024-03-15 11:36] LABS: INR 1.9 (0.9-1.1); PROTHROMBIN TIME 19.5 SEC (9.4-11.6)
[2024-03-15 11:42] LABS: ALBUMIN 1.7 g/dL (3.4-5.0); BILIRUBIN,DIRECT 1.9 mg/dL (0.00-0.20); BILIRUBIN,TOTAL 2.7 mg/dL (0.1-1.0); MAGNESIUM 1.8 mg/dL (1.80-2.40); TOTAL PROTEIN, SERUM 4.3 g/dL (6.4-8.2)
[2024-03-15] MEDS ORDERED: LIDOCAINE 2% 11 ML JELLY TP ONE (12:00)
[2024-03-15 12:07] LABS: BAND NEUTROPHILS % (MANUAL) 9 % (0-5); EOSINOPHILS % (MANUAL) 3 % (1-6); LYMPHOCYTES % (MANUAL) 5 % (22-44); MONOCYTES % (MANUAL) 5 % (2-9); SEGMENTED NEUTROPHILS % 78 % (40-70); TOTAL CELLS COUNTED 100
[2024-03-15 12:09] LABS: WHITE BLOOD COUNT (AUTO) 19.1 K/uL (4.5-11.0)
[2024-03-15 12:11] LABS: TROPONIN I-HIGH SENSITIVITY 123 ng/L (<51)
[2024-03-15] MEDS: BUMETANIDE 0.25 MG/ML 4 ML VIAL IVP ONE (12:13)
[2024-03-15 13:04] LABS: ABG BASE EXCESS 0.5 mmol/L (-2.0-3.0); ABG HCO3 24.7 mmol/L (21.0-28.0); ABG METHEMOGLOBIN 0.2 % (0.0-1.5); ABG OXYGEN CONTENT 12.5 mL/dL (15.0-23.0); ABG OXYGEN SATURATION 97.2 % (94.0-98.0); ABG PCO2 44 mmHg (32.0-45.0); ABG PH 7.383 (7.350-7.450); O2 DEVICE,BLOOD GAS VENTILATOR (ROOM AIR); PEEP,BG 5 cm H2O; PO2, ARTERIAL BG 96.9 mmHg (83.0-108.0); SITE, BLOOD GAS ARTERIAL LINE; SOURCE, BLOOD GAS ARTERIAL; TEMPERATURE, FAHRENHEIT, BG 95.6 FAHREN (96.0-98.6); VT, ABG 470 ml
[2024-03-15 14:31] LABS: GLUCOMETER DEV NAME(LOC) ICU.S6; GLUCOSE,POINT OF CARE 90 MG/DL (70-110)
[2024-03-15 14:31] LABS: GLUCOMETER DEV NAME(LOC) ICU.S6; GLUCOSE,POINT OF CARE 85 MG/DL (70-110)
[2024-03-15 14:31] LABS: GLUCOMETER DEV NAME(LOC) ICU.S6; GLUCOSE,POINT OF CARE 82 MG/DL (70-110)
[2024-03-15 14:31] LABS: GLUCOMETER DEV NAME(LOC) ICU.S6; GLUCOSE,POINT OF CARE 90 MG/DL (70-110)
[2024-03-15 15:14] LABS: HEMATOCRIT 25.8 % (36-46); HEMOGLOBIN 8.1 g/dL (12.0-16.0); MEAN CORPUSCULAR HGB CONC 31.4 G/dL (31.0-37.0); MEAN CORPUSCULAR VOLUME 92 fL (80-100); PLATELET COUNT (AUTO) 47 K/uL (150-450); RED CELL DISTRIBUTION WIDTH 14.9 % (11.5-14.5); WHITE BLOOD COUNT (AUTO) 20.2 K/uL (4.5-11.0)
[2024-03-15 15:24] LABS: CALCIUM, TOTAL 7.7 mg/dL (8.8-10.5); CREATININE 4.91 mg/dL (0.60-1.30); POTASSIUM 5.5 mmol/L (3.5-5.1)
[2024-03-15 15:25] LABS: INR 2.1 (0.9-1.1); PROTHROMBIN TIME 21.4 SEC (9.4-11.6)
[2024-03-15 15:29] LABS: BAND NEUTROPHILS % (MANUAL) 6 % (0-5); LYMPHOCYTES % (MANUAL) 5 % (22-44); MONOCYTES % (MANUAL) 4 % (2-9); SEGMENTED NEUTROPHILS % 85 % (40-70); TOTAL CELLS COUNTED 100
[2024-03-15 15:30] LABS: RBC MORPHOLOGY COMMENT NORMAL RBC MORPH
[2024-03-15 15:40] LABS: ALBUMIN 2.1 g/dL (3.4-5.0); BILIRUBIN,TOTAL 2.9 mg/dL (0.1-1.0); MAGNESIUM 1.9 mg/dL (1.80-2.40); TOTAL PROTEIN, SERUM 4.5 g/dL (6.4-8.2)
[2024-03-15 15:41] LABS: PHOSPHORUS 7.9 mg/dL (2.5-4.9)
[2024-03-15 15:42] LABS: TROPONIN I-HIGH SENSITIVITY 111 ng/L (<51)
[2024-03-15 16:48] LABS: ABG A-A DIFF O2 513.4 mmHg (10-20.0); ABG BASE EXCESS 0.3 mmol/L (-2.0-3.0); ABG CARBOXYHEMOGLOBIN 0.3 % (0.5-1.5); ABG HCO3 24.5 mmol/L (21.0-28.0); ABG METHEMOGLOBIN 0.2 % (0.0-1.5); ABG OXYGEN CONTENT 12.1 mL/dL (15.0-23.0); ABG OXYGEN SATURATION 95.1 % (94.0-98.0); ABG OXYHEMOGLOBIN 94.6 % (94.0-98.0); ABG PCO2 47 mmHg (32.0-45.0); ABG PH 7.354 (7.350-7.450); O2 DEVICE,BLOOD GAS VENTILATOR (ROOM AIR); PEEP,BG 5 cm H2O; PO2, ARTERIAL BG 81.7 mmHg (83.0-108.0); SITE, BLOOD GAS ARTERIAL LINE; SOURCE, BLOOD GAS ARTERIAL; TEMPERATURE, FAHRENHEIT, BG 97.2 FAHREN (96.0-98.6)
[2024-03-15 16:58] LABS: VT, ABG 470 ml
[2024-03-15 18:23] LABS: BILIRUBIN,TOTAL 2.9 mg/dL (0.1-1.0)
[2024-03-15 19:13] LABS: HEMATOCRIT 26.3 % (36-46); HEMOGLOBIN 8.3 g/dL (12.0-16.0); MEAN CORPUSCULAR HEMOGLOBIN 29.1 pg (26.0-34.0); MEAN CORPUSCULAR HGB CONC 31.5 G/dL (31.0-37.0); MEAN CORPUSCULAR VOLUME 92 fL (80-100); PLATELET COUNT (AUTO) 53 K/uL (150-450); RED BLOOD CELL COUNT(AUTO) 2.84 MIL/uL (4.00-5.20); RED CELL DISTRIBUTION WIDTH 14.7 % (11.5-14.5); WHITE BLOOD COUNT (AUTO) 25.3 K/uL (4.5-11.0)
[2024-03-15 19:17] LABS: CALCIUM, TOTAL 7.3 mg/dL (8.8-10.5); CREATININE 4.62 mg/dL (0.60-1.30); POTASSIUM 5.8 mmol/L (3.5-5.1)
[2024-03-15 19:25] LABS: AMYLASE 101 U/L (25-115); BILIRUBIN,TOTAL 2.5 mg/dL (0.1-1.0); INR 2.4 (0.9-1.1); LIPASE 48 U/L (16-77); PROTHROMBIN TIME 23.5 SEC (9.4-11.6)
[2024-03-15 19:30] LABS: ABG PCO2 41 mmHg (32.0-45.0); ABG PH 7.355 (7.350-7.450); PO2, ARTERIAL BG 72.7 mmHg (83.0-108.0); TEMPERATURE, FAHRENHEIT, BG 97.6 FAHREN (96.0-98.6)
[2024-03-15 19:30] LABS: TROPONIN I-HIGH SENSITIVITY 95 ng/L (<51)
[2024-03-15 19:31] LABS: ABG BASE EXCESS -2.9 mmol/L (-2.0-3.0); ABG CARBOXYHEMOGLOBIN 0.3 % (0.5-1.5); ABG HCO3 22.1 mmol/L (21.0-28.0); ABG METHEMOGLOBIN 0.1 % (0.0-1.5); ABG OXYGEN CONTENT 11.4 mL/dL (15.0-23.0); ABG OXYGEN SATURATION 93.6 % (94.0-98.0); ABG OXYHEMOGLOBIN 93.2 % (94.0-98.0); ABG TOTAL HEMOGLOBIN 8.6 G/dL (12.0-16.0); O2 DEVICE,BLOOD GAS VENTILATOR (ROOM AIR); SITE, BLOOD GAS LFT RADIAL; SOURCE, BLOOD GAS ARTERIAL LINE
[2024-03-15 19:32] LABS: ABG A-A DIFF O2 527.9 mmHg (10-20.0); PEEP,BG 5 cm H2O; VT, ABG 470 ml
[2024-03-15 19:33] LABS: BAND NEUTROPHILS % (MANUAL) 7 % (0-5); LYMPHOCYTES % (MANUAL) 4 % (22-44); MONOCYTES % (MANUAL) 3 % (2-9); RBC MORPHOLOGY COMMENT NORMAL RBC MORPH; SEGMENTED NEUTROPHILS % 86 % (40-70); TOTAL CELLS COUNTED 100
[2024-03-15 19:37] LABS: ALBUMIN 1.9 g/dL (3.4-5.0); BILIRUBIN,TOTAL 2.6 mg/dL (0.1-1.0); MAGNESIUM 1.9 mg/dL (1.80-2.40); TOTAL PROTEIN, SERUM 4.5 g/dL (6.4-8.2)
[2024-03-15 19:39] LABS: PHOSPHORUS 7.4 mg/dL (2.5-4.9)
[2024-03-15 20:00] LABS: GLUCOMETER DEV NAME(LOC) ICU.S6; GLUCOSE,POINT OF CARE 95 MG/DL (70-110)
[2024-03-15 20:00] LABS: GLUCOMETER DEV NAME(LOC) ICU.S6; GLUCOSE,POINT OF CARE 85 MG/DL (70-110)
[2024-03-15 20:00] LABS: GLUCOMETER DEV NAME(LOC) ICU.S6; GLUCOSE,POINT OF CARE 87 MG/DL (70-110)
[2024-03-15 20:00] LABS: GLUCOMETER DEV NAME(LOC) ICU.S6; GLUCOSE,POINT OF CARE 96 MG/DL (70-110)
[2024-03-15 20:01] LABS: GLUCOMETER DEV NAME(LOC) ICU.S6; GLUCOSE,POINT OF CARE 99 MG/DL (70-110)
[2024-03-15] MEDS: SODIUM BICARBONATE IRRIG PRN (22:15)
[2024-03-15] MEDS: [UNRECOGNIZED DRUG - OTHER] IRRIG PRN (22:15)
[2024-03-15] MEDS: NXSTAGE RFP K0 IRRIG PRN (22:15)
[2024-03-15] MEDS: POTASSIUM CHLORIDE IRRIG PRN (22:15)
[2024-03-15 22:50] LABS: ABG BASE EXCESS 0.3 mmol/L (-2.0-3.0); ABG CARBOXYHEMOGLOBIN 0.3 % (0.5-1.5); ABG HCO3 24.3 mmol/L (21.0-28.0); ABG METHEMOGLOBIN 0.2 % (0.0-1.5); ABG OXYGEN CONTENT 13.1 mL/dL (15.0-23.0); ABG OXYGEN SATURATION 90.5 % (94.0-98.0); ABG PCO2 50 mmHg (32.0-45.0); ABG PH 7.334 (7.350-7.450); ABG TOTAL HEMOGLOBIN 10.3 G/dL (12.0-16.0); PO2, ARTERIAL BG 63.4 mmHg (83.0-108.0); SOURCE, BLOOD GAS ARTERIAL; TEMPERATURE, FAHRENHEIT, BG 98.1 FAHREN (96.0-98.6)
[2024-03-15 22:54] LABS: SITE, BLOOD GAS LFT RADIAL
[2024-03-15 22:55] LABS: ABG A-A DIFF O2 600.2 mmHg (10-20.0); ALLEN TEST, BLOOD GAS NO; O2 DEVICE,BLOOD GAS VENTILATOR (ROOM AIR); PEEP,BG 5 cm H2O; VT, ABG 470 ml
[2024-03-15 23:19] LABS: APPEARANCE,URINE HAZY (CLEAR); BILIRUBIN,URINE NEGATIVE (NEGATIVE); COLOR,URINE YELLOW (YELLOW); GLUCOSE, URINE (UA) TRACE mg/dL (NEGATIVE); KETONES,URINE NEGATIVE (NEGATIVE); LEUKOCYTE ESTERASE ,URINE SMALL (NEGATIVE); NITRATE,URINE NEGATIVE (NEGATIVE); OCCULT BLOOD,URINE LARGE (NEGATIVE); PH,URINE 5.5 (5.0-8.0); PROTEIN,URINE 100-200,SEE CONFIRM mg/dL (NEGATIVE); SPECIFIC GRAVITIY, URINE 1.022 (1.003-1.030)
[2024-03-15 23:34] LABS: INR 2.7 (0.9-1.1); PROTHROMBIN TIME 26.6 SEC (9.4-11.6)
[2024-03-15 23:35] LABS: GLUCOMETER DEV NAME(LOC) ICU.S6; GLUCOSE,POINT OF CARE 107 MG/DL (70-110)
[2024-03-15 23:35] LABS: GLUCOMETER DEV NAME(LOC) ICU.S6; GLUCOSE,POINT OF CARE 108 MG/DL (70-110)
[2024-03-15 23:35] LABS: GLUCOMETER DEV NAME(LOC) ICU.S6; GLUCOSE,POINT OF CARE 106 MG/DL (70-110)
[2024-03-15 23:35] LABS: GLUCOMETER DEV NAME(LOC) ICU.S6; GLUCOSE,POINT OF CARE 111 MG/DL (70-110)
[2024-03-15] MEDS ORDERED: HEPARIN SODIUM,PORCINE 1,000 UNITS/ML VIAL IVCATH PRN ×2 (23:45)
[2024-03-15 23:49] LABS: TROPONIN I-HIGH SENSITIVITY 79 ng/L (<51)
[2024-03-15 23:52] LABS: PHOSPHORUS 7.4 mg/dL (2.5-4.9)
[2024-03-15 23:54] LABS: HEMOGLOBIN 8.4 g/dL (12.0-16.0); MEAN CORPUSCULAR HEMOGLOBIN 29.4 pg (26.0-34.0); MEAN CORPUSCULAR VOLUME 93 fL (80-100)
[2024-03-16] VITALS: BP 129/83; PULSE 111; RESP 24; TEMP 98.2; O2SAT 90
[2024-03-16 00:04] LABS: CALCIUM, TOTAL 7.8 mg/dL (8.8-10.5); CREATININE 4.43 mg/dL (0.60-1.30); HEMATOCRIT 26.7 % (36-46); MEAN CORPUSCULAR HGB CONC 31.6 G/dL (31.0-37.0); PLATELET COUNT (AUTO) 49 K/uL (150-450); POTASSIUM 5.9 mmol/L (3.5-5.1); RED BLOOD CELL COUNT(AUTO) 2.86 MIL/uL (4.00-5.20); RED CELL DISTRIBUTION WIDTH 14.7 % (11.5-14.5)
[2024-03-16 00:04] LABS: BACTERIA,URINE None Seen /HPF (None Seen); SULFOSALICYLIC ACID,URINE 2+ (Negative); WBC,URINE 0-2 /HPF (0-5)
[2024-03-16 00:05] LABS: SQUAMOUS EPITHELIAL CELL,UR Few /LPF (None Seen); YEAST,URINE Many /HPF (None Seen)
[2024-03-16 00:07] LABS: WHITE BLOOD COUNT (AUTO) 30.9 K/uL (4.5-11.0)
[2024-03-16 00:13] LABS: BILIRUBIN,DIRECT 1.7 mg/dL (0.00-0.20); BILIRUBIN,TOTAL 2.5 mg/dL (0.1-1.0)
[2024-03-16 00:19] LABS: ALBUMIN 1.9 g/dL (3.4-5.0); BILIRUBIN,TOTAL 2.5 mg/dL (0.1-1.0); TOTAL PROTEIN, SERUM 4.7 g/dL (6.4-8.2)
[2024-03-16 00:21] LABS: BAND NEUTROPHILS % (MANUAL) 9 % (0-5); EOSINOPHILS % (MANUAL) 1 % (1-6); LYMPHOCYTES % (MANUAL) 2 % (22-44); MONOCYTES % (MANUAL) 5 % (2-9); SEGMENTED NEUTROPHILS % 83 % (40-70); TOTAL CELLS COUNTED 100
[2024-03-16 00:59] VITALS: PULSE 111; RESP 22; O2SAT 92
[2024-03-16 01:56] VITALS: BP 120/58; PULSE 110
[2024-03-16 02:05] LABS: GLUCOMETER DEV NAME(LOC) ICUN.5; GLUCOSE,POINT OF CARE 111 MG/DL (70-110)
[2024-03-16] MEDS ORDERED: FentaNYL CITRATE PF 100 MCG/2 ML VIAL IVP ONE (07:00)
[2024-03-16] MEDS ORDERED: ROCURONIUM BROMIDE 10 MG/ML 5 ML VIAL IVP ONE (07:00)
== END 2024-03-16 07:00 | DRG 812 ==
LOC: EMS 07:36 → EDBD 07:36 → EDH 13:43 → ICU 22:25
PROVIDERS: ADMIT Internal Medicine; ATTEND Internal Medicine
PROC: 0BH17EZ Insertion of Endotracheal Airway into Trachea, Via Natural or Artificial Opening (ICD-10-PCS; 2024-03-10)
PROC: 5A1955Z Respiratory Ventilation, Greater than 96 Consecutive Hours (ICD-10-PCS; 2024-03-10)
PROC: 02HV33Z Insertion of Infusion Device into Superior Vena Cava, Percutaneous Approach (ICD-10-PCS; 2024-03-11)
PROC: B548ZZA Ultrasonography of Superior Vena Cava, Guidance (ICD-10-PCS; 2024-03-11)
PROC: 5A1D70Z Performance of Urinary Filtration, Intermittent, Less than 6 Hours Per Day (ICD-10-PCS; 2024-03-11)
PROC: 5A1D70Z Performance of Urinary Filtration, Intermittent, Less than 6 Hours Per Day (ICD-10-PCS; 2024-03-12)
PROC: 0B9F8ZZ Drainage of Right Lower Lung Lobe, Via Natural or Artificial Opening Endoscopic (ICD-10-PCS; principal; 2024-03-15)
PROC: 0B9G8ZZ Drainage of Left Upper Lung Lobe, Via Natural or Artificial Opening Endoscopic (ICD-10-PCS; 2024-03-15)
PROC: 0B958ZZ Drainage of Right Middle Lobe Bronchus, Via Natural or Artificial Opening Endoscopic (ICD-10-PCS; 2024-03-15)
PROC: 0B9H8ZZ Drainage of Lung Lingula, Via Natural or Artificial Opening Endoscopic (ICD-10-PCS; 2024-03-15)
DX: T40.411A Poisoning by fentanyl or fentanyl analogs, accidental (unintentional), initial encounter (principal); K72.00 Acute and subacute hepatic failure without coma; J96.00 Acute respiratory failure, unspecified whether with hypoxia or hypercapnia; J69.0 Pneumonitis due to inhalation of food and vomit; N17.0 Acute kidney failure with tubular necrosis; A41.9 Sepsis, unspecified organism; E87.4 Mixed disorder of acid-base balance; D68.9 Coagulation defect, unspecified; I46.9 Cardiac arrest, cause unspecified; Z20.822 Contact with and (suspected) exposure to COVID-19; R65.21 Severe sepsis with septic shock; D69.6 Thrombocytopenia, unspecified; K92.2 Gastrointestinal hemorrhage, unspecified; I21.4 Non-ST elevation (NSTEMI) myocardial infarction; J18.9 Pneumonia, unspecified organism; M62.82 Rhabdomyolysis; G93.1 Anoxic brain damage, not elsewhere classified; E66.01 Morbid (severe) obesity due to excess calories; E87.5 Hyperkalemia; I70.201 Unspecified atherosclerosis of native arteries of extremities, right leg; Z68.41 Body mass index [BMI] 40.0-44.9, adult; Z99.2 Dependence on renal dialysis; Z99.11 Dependence on respirator [ventilator] status; Y92.89 Other specified places as the place of occurrence of the external cause
CPT/HCPCS: 31624; 36600; 70496; 70498; 71045; 71250; 72192; 74150; 76770; 78606; 80048; 80053; 80202; 80307; 81001; 81002; 82150; 82247; 82248; 82271; 82330; 82550; 82570; 82805; 82948; 82962; 83605; 83615; 83690; 83735; 84100; 84300; 84484; 84540; 84703; 85025; 85610; 85730; 86022; 86738; 87015; 87040; 87070; 87081; 87086; 87101; 87186; 87206; 87220; 87340; 87481; 90935; 90947; 93005; 93306; 93925; 93970; 94002; 94003; 94640; 99291; A9521; C9113; G0238; G0480; G0481; J0131; J0282; J0610; J0712; J1644; J1815; J2185; J2310; J2370; J2543; J2704; J2919; J3010; J3370; J3480; J3490; J7030; J7040; J7050; J7060; P9041; P9046; 36415-L1; 36415-TC; 70450; 70450-TC; 82803-TC; J7613